=== PATIENT | male | born 1960 | race Caucasian/White ===

== ENCOUNTER 2016-10-11 10:48 | Day surgery (SDC) | payer OTHER ==
[2016-10-03 13:57] VITALS: BMI 36.9
[2016-10-11] MEDS ORDERED: MIDAZOLAM HCL 2 MG/2 ML SINGLE DOSE VIAL ONE (11:50)
[2016-10-11] MEDS ORDERED: BUPIVACAINE HCL/PF 0.25% (2.5MG/ML) 10 ML VIAL IJ ONE (13:14)
[2016-10-11] MEDS ORDERED: ONDANSETRON 4 MG/2 ML VIAL IVPUSH PRN (13:48)
[2016-10-11] MEDS ORDERED: oxyCODONE HCL 5 MG TABLET PO PRN ×2 (13:48)
[2016-10-11] MEDS ORDERED: LACTATED RINGERS SOLUTION 1,000 ML IV SCH (14:00)
[2016-10-11 15:46] VITALS: TEMP 97.8
[2016-10-11 15:50] VITALS: BP 152/91; PULSE 80
--- NOTE | 2016-10-14 11:41 | OP ---
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 OPERATIVE PROCEDURE: 1. Right radiocarpal joint synovectomy and biopsy.complete. 2. Right distal radioulnar joint synovectomy. SURGEON: Jad Claudio MD SCROLL MACHINE OPERATOR: DYLAN Sweeney ANESTHESIA: General. COMPLICATIONS: None. ESTIMATED BLOOD LOSS: Minimal. INDICATIONS FOR PROCEDURE: The patient is a 55-year-old male with the above findings, indicated for operative treatment. The risks, benefits, and alternatives were discussed with the patient at length, and proper informed consent was obtained. PROCEDURE: After proper identification of the patient and the correct operative site, the patient was brought to the operating room and placed supine on the operating table with prominences well padded. General anesthesia was provided by the anesthesiologist adequate for the procedure. Right upper extremity was prepped and draped in the usual sterile fashion. Well-padded tourniquet was placed with a sterile prep. Esmarch bandage was used to exsanguinate the right upper extremity. Tourniquet was inflated to 250 mmHg. A longitudinal incision was made at the dorsal aspect of the wrist. Incision was taken sharply through the skin with blunt and sharp dissection of subcutaneous tissues. Extensor hallucis longus was elevated out of its compartment, and the 2nd and 4th compartments were elevated off the dorsal wrist capsule. The extensor hallucis longus was transposed permanently. A ligament-sparing capsulotomy was then performed through the dorsal wrist capsule, and significant synovial hypertrophy was noted. This was debrided, and specimen was sent for culture, crystal analysis, and permanent specimen. There were multiple crystalline structures noted within the wrist. However, it was unclear if this was due to cortisone injection or a crystalline arthropathy. There was mild to moderate arthrosis in the wrist area. The wound was irrigated with saline, and after a complete synovectomy was performed, the capsule was repaired using 3-0 Vicryl suture. The distal radioulnar joint was then opened through a separate incision in the joint, through a separate capsulotomy. Synovitis was also noted here, and a synovectomy was performed. The wounds were irrigated with saline and repaired in layers including the extensor retinaculum using 4-0 Vicryl and 4-0 nylon sutures. Sterile dressings were applied. Splint was placed. Patient was reversed from anesthesia and brought to recovery in stable condition. Keagan Roberson, the quality control assistant, was integral throughout this procedure. This procedure could not have been performed without a skilled operative quality control assistant. JAD CLAUDIO M.D. KHALIDA/[id number]
--- NOTE | 2016-10-17 15:39 | PATH ---
Surgical Pathology Report Patient Name: SHIRLEY OVALLES [facility]. Rec. #: [id number] /Age/Gender: 1960 (Age: 55) / M Account: [id number] Location: [facility] AM[facility] Taken: 10/11/2016 Received: 10/11/2016 Reported: 10/17/2016 Physicians: Donavon Chowdhury M.D. Specimen(s) Received A: RIGHT WRIST SYNOVIUM (SENT FOR CRYSTAL ANALYSIS) B: RIGHT WRIST SYNOVIUM Clinical History Right wrist arthritis Final Diagnosis A,B. SYNOVIUM, RIGHT WRIST, SYNOVECTOMY: SYNOVIUM SHOWING MARKED CHRONIC INFLAMMATION, FIBRINOPURULENT EXUDATE, FOREIGN BODY GIANT CELL REACTION AND REACTIVE HYPERPLASIA WITH GRANULATION TISSUE FORMATION. NO POLARIZABLE CRYSTALLINE MATERIAL IS IDENTIFIED (IN NON-AQUEOUS ALCOHOLIC EOSIN STAINED SECTIONS). Electronically Signed Estee Hernandez M.D. Gross Description A. Received fresh labeled "right wrist synovium for crystal analysis," is a 0.9 x 0.5 x 0.3 cm pink-jacobson soft tissue fragment. The specimen is submitted in toto in one cassette. B. Received in formalin labeled "right wrist synovium," is a 0.8 x 0.4 x 0.2 cm pink-jacobson soft tissue fragment. The specimen is submitted in toto in one cassette. 10/12/201610/12/2016
== END 2016-10-11 14:45 | disposition home or self-care (01) ==
LOC: FASU 10:48
PROVIDERS: ATTEND Orthopaedic Surgery Hand Surgery
PROC: 0RBN0ZZ Excision of Right Wrist Joint, Open Approach (ICD-10-PCS; principal; 2016-10-11 12:30)
DX: M13.831 Other specified arthritis, right wrist (principal)
CPT/HCPCS: 87070; 87075; 87102; 87116; 87205; 87206; 87210; 88305-TC; 94760